=== PATIENT | female | born 1950 | race Caucasian/White ===

== ENCOUNTER → 2016-07-24 | Outpatient (CLI) | payer OTHER ==
[~2016-07-24] MED LIST: CALCTAB5 PO; CHOL100010 PO; FSMD/70 PO; TAMO20TA47 PO
== END | disposition home or self-care (01) ==
LOC: C.MAMM 09:53
PROVIDERS: ATTEND Internal Medicine Endocrinology, Diabetes & Metabolism
DX: M81.0 Age-related osteoporosis without current pathological fracture (principal); E55.9 Vitamin D deficiency, unspecified; M85.88 Other specified disorders of bone density and structure, other site; M85.851 Other specified disorders of bone density and structure, right thigh; M85.852 Other specified disorders of bone density and structure, left thigh; Z86.39 Personal history of other endocrine, nutritional and metabolic disease

== ENCOUNTER → 2016-07-24 | Outpatient (CLI) | payer OTHER ==
[2016-07-24 12:09] LABS: CALCIUM 9.7 mg/dl (8.5-10.1)
[2016-07-24 12:23] LABS: THYROID STIMULATING HORMONE 1.59 uIu/ml (0.300-4.500)
[2016-07-29 02:19] LABS: ILGF1 Z SCORE FEMALE -0.7 SD (-2.0 - +2.0); INSULIN LIKE GROWTH FACTOR-I 83 ng/mL (41-279)
== END | disposition home or self-care (01) ==
LOC: C.LAB1850 10:34
PROVIDERS: ATTEND Internal Medicine Endocrinology, Diabetes & Metabolism
DX: M81.0 Age-related osteoporosis without current pathological fracture (principal); Z86.39 Personal history of other endocrine, nutritional and metabolic disease; E55.9 Vitamin D deficiency, unspecified

== ENCOUNTER → 2016-09-19 | Outpatient (CLI) | payer OTHER ==
[~2016-09-19] MED LIST changes: -TAMO20TA47 PO; +TAMO20TA9 PO
== END | disposition home or self-care (01) ==
LOC: C.LAB1850 13:38
PROVIDERS: ATTEND Internal Medicine Endocrinology, Diabetes & Metabolism
DX: M81.0 Age-related osteoporosis without current pathological fracture (principal); E55.9 Vitamin D deficiency, unspecified; Z86.39 Personal history of other endocrine, nutritional and metabolic disease

== ENCOUNTER → 2016-11-20 | Outpatient (CLI) | payer OTHER ==
[~2016-11-20] MED LIST changes: +TAMO20TA47 PO; -TAMO20TA9 PO
== END | disposition home or self-care (01) ==
LOC: C.LAB1850 12:43
PROVIDERS: ATTEND Internal Medicine Endocrinology, Diabetes & Metabolism
DX: M81.0 Age-related osteoporosis without current pathological fracture (principal); Z86.39 Personal history of other endocrine, nutritional and metabolic disease; E55.9 Vitamin D deficiency, unspecified

== ENCOUNTER → 2016-12-06 | Outpatient (CLI) | payer OTHER ==
--- NOTE | 2016-12-07 12:45 | MAMMOGRAPHY REPORT ---
BILATERAL DIGITAL SCREENING MAMMOGRAM TOMOSYNTHESIS WITH CAD: 12/06/2016 CLINICAL HISTORY: Asymptomatic. Personal history of breast cancer. TECHNIQUE: Breast tomosynthesis in addition to standard 2D mammography was performed. Current study was also evaluated with a Computer Aided Detection (CAD) system. COMPARISON: Comparison is made to exams dated: 12/06/2015 mammogram, 12/03/2014 mammogram, 06/04/2014 ma mmogram, 12/02/2013 mammogram, 12/01/2012 mammogram, and 09/11/2011 mammogram - [facility]. BREAST COMPOSITION: There are scattered areas of fibroglandular density in both breasts. FINDINGS: Again noted are post surgical changes in the right upper outer quadrant from prior lumpect [place], including stable density, architectural distortion, and surgical clips at the lumpectomy bed. A linear scar marker denotes a scar on the right breast. There are newly visualized faint calcificati ons at the lumpectomy bed, which may represent developing dystrophic calcifications from fat necrosis , however, spot magnification views are recommended for further evaluation. The remainder of both breasts are stable compared to prior exams, without suspicious masses, calcific ations, or areas of architectural distortion noted. IMPRESSION: ACR BI-RADS CATEGORY 0: INCOMPLETE EVALUATION: NEED ADDITIONAL IMAGING EVALUATION Right upper outer quadrant calcifications, for which additional imaging evaluation is recommended. T he patient will be called to schedule an appointment. Approximately 10% of breast cancers are not detected with mammography. A negative mammographic report should not delay biopsy if a clinically suggestive mass is present. Sophia Ramesh M.D. ah/:12/06/2016 17:00:52 Rnp: Fredy HERNÁNDEZ(R)(M), [facility] letter sent: Addl Imaging 0 BI-RADS Code: ACR BI-RADS Category 0: Incomplete Evaluation: Need Additional Imaging Evaluation
== END | disposition home or self-care (01) ==
LOC: C.MAMM 09:52
PROVIDERS: ATTEND Obstetrics & Gynecology
DX: Z12.31 Encounter for screening mammogram for malignant neoplasm of breast (principal); Z85.3 Personal history of malignant neoplasm of breast

== ENCOUNTER → 2016-12-12 | Outpatient (CLI) | payer OTHER ==
--- NOTE | 2016-12-12 15:44 | MAMMOGRAPHY REPORT ---
UNILATERAL RIGHT DIGITAL DIAGNOSTIC MAMMOGRAM: 12/12/2016 CLINICAL HISTORY: 66-year-old woman with a personal history of right breast cancer called back from s creening mammography for new calcifications at the surgical site in the right upper outer quadrant. TECHNIQUE: Spot magnification right CC and ML views were obtained. COMPARISON: Comparison is made to exams dated: 12/06/2016 mammogram, 12/06/2015 mammogram, 12/03/2014 m ammogram, 12/02/2013 mammogram, 12/02/2013 ultrasound, and 12/01/2012 mammogram - [facility]. BREAST COMPOSITION: There are scattered areas of fibroglandular density in the right breast. FINDINGS: Spot magnification views of the right upper outer quadrant demonstrate approximately 4 alex t punctate and curvilinear microcalcifications. Some appear to be forming a rim around a lucent oval mass, suggesting early fat necrosis. No definite suspicious microcalcifications are seen. However, given the interval development, a short interval follow-up diagnostic mammogram and repeat spot magn ification views are recommended in 6 months. No obvious new mass or unexpected architectural distort ion is seen in the visualized right breast on these images. IMPRESSION: ACR-BI-RADS CATEGORY 3: PROBABLY BENIGN There are approximately 4 faint new microcalcifications near the lumpectomy bed in the right upper ou ter quadrant, that could represent benign fat necrosis. A short interval follow-up diagnostic mammog mckinley including spot magnification views is recommended to ensure stability in 6 months. These results and recommendations were discussed with the patient at the time of the exam. She tenta tively scheduled a follow-up appointment prior to leaving our department. Approximately 10% of breast cancers are not detected with mammography. A negative mammographic report should not delay biopsy if a clinically suggestive mass is present. Bisi Sorto M.D. ay/:12/12/2016 13:57:09 Aircraft Landing Gear Inspector: Bettye NAVARRO)(Mariaelena), [facility] letter sent: Follow Up Recommended 3 BI-RADS Code: ACR-BI-RADS Category 3: Probably Benign
== END | disposition home or self-care (01) ==
LOC: C.MAMM 09:53
PROVIDERS: ATTEND Obstetrics & Gynecology
DX: R92.0 Mammographic microcalcification found on diagnostic imaging of breast (principal); Z85.3 Personal history of malignant neoplasm of breast; Z08 Encounter for follow-up examination after completed treatment for malignant neoplasm

== ENCOUNTER → 2017-02-04 | Outpatient (CLI) | payer OTHER | END | disposition home or self-care (01) | LOC: C.LAB1850 10:18 | PROVIDERS: ATTEND Internal Medicine Endocrinology, Diabetes & Metabolism | DX: M81.0 Age-related osteoporosis without current pathological fracture (principal); E55.9 Vitamin D deficiency, unspecified; Z86.39 Personal history of other endocrine, nutritional and metabolic disease ==

== ENCOUNTER → 2017-06-14 | Outpatient (CLI) | payer OTHER ==
[~2017-06-14] MED LIST changes: -TAMO20TA47 PO; +TAMO20TA9 PO
--- NOTE | 2017-06-14 13:59 | MAMMOGRAPHY REPORT ---
UNILATERAL RIGHT DIGITAL DIAGNOSTIC MAMMOGRAM TOMOSYNTHESIS WITH CAD: 06/14/2017 CLINICAL HISTORY: History of right breast cancer here for short interval follow-up of calcifications seen at the surgical bed. TECHNIQUE: Breast tomosynthesis in addition to standard 2D mammography was performed. Current study was also evaluated with a Computer Aided Detection (CAD) system. Right CC and MLO 2-D and tomosynthe sis images and right spot magnification CC and ML views were obtained. COMPARISON: Comparison is made to exams dated: 12/12/2016 mammogram, 12/06/2015 mammogram, 12/06/2016 m ammogram, 12/03/2014 mammogram, 06/04/2014 mammogram, and 12/02/2013 mammogram - [facility]. BREAST COMPOSITION: There are scattered areas of fibroglandular density in the right breast. FINDINGS: Spot magnification views demonstrate grouped coarse heterogeneous calcifications at the lum pectomy bed in the right upper outer quadrant. Compared to the prior November 2016 exam, the calcificati ons have coarsened and therefore appear more benign. Additionally, the calcifications are seen to be in association with a fat density 9 mm mass which is consistent with fat necrosis. Given the interv al coarsening and association with the fat density mass, the calcifications are probably benign and l ikely represent dystrophic calcifications from fat necrosis. The remainder of the right breast is st able compared to prior exams, without suspicious masses, calcifications, or areas of architectural di stortion noted. Post surgical changes are again noted within the right upper outer quadrant from kelvin or lumpectomy, including architectural distortion and surgical clips at the lumpectomy bed. IMPRESSION: ACR-BI-RADS CATEGORY 3: PROBABLY BENIGN Grouped calcifications at the lumpectomy bed in the right upper outer quadrant have coarsened in the interval and are probably benign and likely represent dystrophic calcifications from fat necrosis. R ecommend bilateral diagnostic tomosynthesis mammograms in 6 months, to reevaluate the right breast ca lcifications and for routine mammography of the left breast. The patient has been verbally notified of the results. Approximately 10% of breast cancers are not detected with mammography. A negative mammographic report should not delay biopsy if a clinically suggestive mass is present. Sophia Ramesh M.D. /:06/14/2017 11:58:18 Personal Care Home Administrator: Ermelinda Mathis, [facility] letter sent: Follow Up Recommended 3 BI-RADS Code: ACR-BI-RADS Category 3: Probably Benign
== END | disposition home or self-care (01) ==
LOC: C.MAMM 10:28
PROVIDERS: ATTEND Obstetrics & Gynecology
DX: R92.1 Mammographic calcification found on diagnostic imaging of breast (principal)

== ENCOUNTER → 2017-06-17 | Outpatient (CLI) | payer OTHER | END | disposition home or self-care (01) | LOC: C.LAB1850 11:32 | PROVIDERS: ATTEND Internal Medicine Endocrinology, Diabetes & Metabolism | DX: M81.0 Age-related osteoporosis without current pathological fracture (principal); Z86.39 Personal history of other endocrine, nutritional and metabolic disease ==

== ENCOUNTER → 2017-08-22 | Outpatient (CLI) | payer OTHER | END | disposition home or self-care (01) | LOC: C.LAB1850 15:21 | PROVIDERS: ATTEND Internal Medicine Endocrinology, Diabetes & Metabolism | DX: M81.0 Age-related osteoporosis without current pathological fracture (principal); E55.9 Vitamin D deficiency, unspecified; Z86.39 Personal history of other endocrine, nutritional and metabolic disease ==

== ENCOUNTER → 2017-09-19 | Outpatient (CLI) | payer OTHER | END | disposition home or self-care (01) | LOC: C.PAPS 18:11 | PROVIDERS: ATTEND Obstetrics & Gynecology | DX: Z12.4 Encounter for screening for malignant neoplasm of cervix (principal) ==

== ENCOUNTER → 2017-12-13 | Outpatient (CLI) | payer OTHER ==
--- NOTE | 2017-12-16 07:45 | MAMMOGRAPHY REPORT ---
BILATERAL DIGITAL DIAGNOSTIC MAMMOGRAM TOMOSYNTHESIS WITH CAD: 12/13/2017 CLINICAL HISTORY: History of right breast cancer here for short follow-up of right breast calcificati ons. Due for annual mammography of the left breast. TECHNIQUE: The study was acquired using full field digital technology and interpreted from soft copy. Breast tomosynthesis in addition to standard 2D mammography was performed. Current study was also ev aluated with a Computer Aided Detection (CAD) system. Bilateral CC and MLO 2D and tomosynthesis imag es and spot magnification right cc and ML views were obtained. COMPARISON: Comparison is made to exams dated: 06/14/2017 mammogram, 12/12/2016 mammogram, 12/06/2016 m ammogram, 12/06/2015 mammogram, 12/03/2014 mammogram, and 12/02/2013 mammogram - [facility]. BREAST COMPOSITION: There are scattered areas of fibroglandular density in both breasts. FINDINGS: Again noted are post surgical changes in the right upper outer quadrant from prior lumpectomy, includ ing density and architectural distortion and surgical clips at the lumpectomy bed. Spot magnificatio n views demonstrate interval coarsening of the coarse heterogeneous calcifications in the right upper outer quadrant at the lumpectomy bed. Given the interval coarsening and given that they are in asso ciation with a fat density mass, the calcifications are benign and compatible with dystrophic calcifi cations from fat necrosis. The remainder of both breasts are stable compared to prior exams, without suspicious masses, calcifications, or areas of architectural distortion noted. Bilateral asymmetrie s are stable. IMPRESSION: ACR BI-RADS CATEGORY 2: BENIGN Grouped coarse heterogeneous calcifications at the lumpectomy bed in the right upper outer quadrant h ave coarsened in the interval and are benign and compatible with dystrophic calcifications from fat n ecrosis. There is no mammographic evidence of malignancy in either breast. A 1 year screening mammog mckinley is recommended.(12/14/2018) The patient has been verbally notified of the results. Some breast cancers are not detected with mammography. A negative mammographic report should not kwaku y biopsy if a clinically suggestive mass is present. Sophia Ramesh M.D. ah/:12/13/2017 09:53:22 Residential Air Sealing Technician: RT Antoni(R)(M), [facility] letter sent: Normal 1/2 BI-RADS Code: ACR BI-RADS Category 2: Benign
== END | disposition home or self-care (01) ==
LOC: C.MAMM 08:59
PROVIDERS: ATTEND Obstetrics & Gynecology
DX: Z85.3 Personal history of malignant neoplasm of breast (principal); R92.1 Mammographic calcification found on diagnostic imaging of breast